=== PATIENT | male | born 1945 ===

== ENCOUNTER 2019-05-14 13:49 | Emergency (ER) | payer OTHER ==
--- NOTE | 2019-05-14 13:51 | UC ---
Head Injury HPI - HPI Summary HPI Summary: 73 yo male presents, accompanied by [place], s/p fall. Pt has parkinson's and responds "yes" or "no" to most questions. The majority of the history if provided by his . She tells me that pt was sleeping on a chair on their [place]. About 1.5 hours ago she woke him up to get ready to go out and she went inside for a moment. Pt went to get to his feet and stumbled - believes over his large rain/mud boots - and fell on his right side hitting his face against the ground. No LOC. helped him to his feet and cleaned him up and called a neighbor who recommended they be checked out. Pt currently endorses nasal pain, right cheek pain with laceration, and right knee pain with abrasion. Denies headache, dizziness, numbness, tingling, neck/ back/hip pain. He uses a cane or walker at baseline. - History Of Current Complaint Stated Complaint: FACIAL LACERATION Time Seen by Provider: 05/14/19 13:51 Hx Obtained From: Patient, Family/Rehab Aid Hx From Patient Unobtainable Due To: Dementia Onset/Duration: Sudden Onset Severity Currently: Mild Severity Initially: Mild Pain Intensity: 3 Pain Scale Used: 0-10 Numeric - Allergies/Home Medications Allergies/Adverse Reactions: Allergies Allergy/AdvReac Type Severity Reaction Status Date / Time No Known Allergies Allergy Verified 05/14/19 14:00 Home Medications: Home Medications Amantadine CAP* [Symmetrel CAP*] 1 cap PO BID 05/14/19 [History Confirmed ] Aspirin 81 mg CHEW TAB* 1 tab PO DAILY 05/14/19 [History Confirmed 05/14/19] Atorvastatin* [Lipitor 10 MG*] 1 tab PO DAILY 05/14/19 [History Confirmed ] Carbidopa/Levodopa/Entacapone [Carbidopa-Levodopa 50 mg-Enta] 1 tab PO BID 05/13 [History Confirmed 05/14/19] Cephalexin CAP* [Keflex CAP*] 500 mg PO TID #21 cap 05/14/19 [Rx] Entacapone (NF) [Comtan(NF)] 1 tab PO Q4HR 05/14/19 [History Confirmed 05/14/19] Finasteride TAB* [Proscar TAB*] 1 tab PO DAILY 05/14/19 [History Confirmed 05/13] Oxybutynin TAB* [Ditropan TAB*] 1 tab PO BEDTIME 05/14/19 [History Confirmed ] Pimavanserin Tartrate [Nuplazid] 1 cap PO BEDTIME 05/14/19 [History Confirmed ] Selegiline TAB* [Eldepryl TAB*] 1 tab PO BID 05/14/19 [History Confirmed ] Tamsulosin CAP* [Flomax CAP*] 1 cap PO DAILY WITH MEAL 05/14/19 [History Confirmed 05/14/19] traMADol TAB* [Ultram*] 1 tab PO Q6HR PRN 05/14/19 [History Confirmed 05/14/19] PMH/Surg Hx/FS Hx/Imm Hx - Additional Past Medical History Additional PMH: Parkinson's - Family History Known Family History: Positive: Unknown - Social History Occupation: Retired Lives: With Family Alcohol Use: None Substance Use Type: None Smoking Status (MU): Former Smoker Review of Systems All Other Systems Reviewed And Are Negative: No Constitutional: Positive: Negative Skin: Positive: Other - Right facial laceration. Eyes: Positive: Negative ENT: Positive: Negative Respiratory: Positive: Negative Cardiovascular: Positive: Negative Gastrointestinal: Positive: Negative Genitourinary: Positive: Negative Motor: Positive: Negative Neurovascular: Positive: Negative Musculoskeletal: Positive: Other: - Right knee pain. Facial pain. Neurological/Mental Status: Positive: Negative Psychological: Positive: Negative Physical Exam - Summary Physical Exam Summary: GENERAL: NAD. WDWN. No pain distress. SKIN: RIGHT KNEE: Superficial abrasion to anterior knee. RIGHT CHEEK: 3.5cm laceration with partial thickness mild active bleeding. HEENT: Head: See skin. No condon's sign or racoon eyes. Eyes: PERRLA. EOM intact. TTP about right lateral orbit and maxillary bone and zygomatic bone. Ears: Hearing grossly normal. TMs intact, no bulging, erythema, or edema. No hemotympanum Nose: Nasal mucosa with dried blood. Mild ttp nasal bridge. NECK: Supple. Nontender. FROM CHEST: CTAB. No r/r/w. No accessory muscle use. Breathing comfortably and in no distress. CV: RRR. Pulses intact. Brisk cap refill. MSK: FROM in B/L UEs and LEs with symmetric strength. NEURO: A&Ox3. CN: II: Peripheral earl intact. Vision normal. III, IV, : EOMI. No nystagmus or double vision. PERRLA. V: Sensations intact and symmetric. Opens mouth and clenches teeth. VII: No facial asymmetry. Forehead wrinkles. Grins, shuts eyes, frowns, puffs cheeks. VIII: Hearing intact to finger rub. IX, X: Swallows and coughs. Uvula midline. XI: Shrugs shoulders. Turns head against resistance. XII: No tongue deviation. [id number] are intact. Normal speech. No facial drooping. Tremor at baseline. PSYCH: Age appropriate behavior. Triage Information Reviewed: Yes Vital Signs: Vital Signs: Temp Pulse Resp BP Pulse Ox 97.1 F 57 18 172/92 100 05/14/19 14:01 05/14/19 14:01 05/14/19 14:01 05/14/19 14:01 05/14/19 14:01 Vital Signs Reviewed: Yes Procedures - Laceration/Wound Repair 1 Location: head Description: Linear Anesthesia: 2.0% Length, Depth and Shape: 3.5cm Irrigated w/ Saline (ccs): 200 Laceration/Wound Explored: clean Closure: Single Layer Suture Type: Prolene - 5-0 Number of Sutures: 4 Layer Closure?: No Sterile Dressing Applied?: Yes Diagnostics - Radiology CT brain Radiology Interpretation Completed By: Radiologist Summary of Radiographic Findings: IMPRESSION: COMMINUTED FRACTURE OF THE RIGHT MAXILLA. NO ACUTE INTRACRANIAL PATHOLOGY. CT maxio Radiology Interpretation Completed By: Radiologist Summary of Radiographic Findings: FINDINGS: BONES: There is a comminuted fracture of the right zygomaticomaxillary facial complex. The maxillary fracture extends to the sinus, involving the anterior posterior maxillary sinus richards. There is a fracture of the right zygomatic arch. There are fractures of the right lateral and inferior orbital rims. The right maxillary fracture extends to the alveolar ridge. There is diastasis of the frontozygomatic suture. ORBITS: The globes are round. The optic nerves are symmetric. The extraocular musculature is normal. There is no post septal or intraconal inflammatory change. There is no retrobulbar hematoma. PARANASAL SINUSES: There is high attenuation material noted within the right maxillary sinus consistent with blood. BRAIN AND SOFT TISSUE: There is associated soft tissue swelling. There is subcutaneous emphysema. OTHER: None. IMPRESSION: RIGHT ZYGOMATICOMAXILLARY COMPLEX FRACTURE DESCRIBED ABOVE. Right knee XR Radiology Interpretation Completed By: Radiologist Summary of Radiographic Findings: IMPRESSION: #. Negative for fracture. #. 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 Head Injury Course/Dx - Course Course Of Treatment: RIGHT CHEEK LACERATION REPAIR: The procedure was explained to the pt and all questions were answered. A time out was performed, witnessed, and signed. The area was irrigated with 200mL sterile saline. 2mL of 2% lidocaine without epi was administered and good anesthetization was achieved. The wound was explored. In the usual sterile fashion, FOUR 5-0 prolene interrupted sutures were placed. Homeostasis achieved. The wound was bandaged with telfa. Pt tolerated procedure well. tdap updated today. XR knee negative. CT findings as above. I called ENT to discuss findings and they advised to call facial trauma. We do not have facial trauma manager convention, therefore I called [facility] and spoke with Dr. العلي of [facility]. Given that there are no vision changes and EOM are intact - Dr. العلي recommends suturing the laceration, cold compress, and f/u prn. I discussed the above with pt and his with him. I recommended follow up with PCP as soon as possible. states they will call for an appointment tomorrow as they go to a PCP in the [facility]. I had a long discussion with pt's that if Harshad exhibits any mental status change from his baseline or if he has vision changes, headache, or changes in his right eye movement to call 911 or go to the nearest ER immediately. She voiced understanding. Will place him on keflex for his facial laceration and facial fractures. - Differential Dx/Diagnosis Provider Diagnosis: Fall, Orbital fracture, Facial laceration, Zygomatic fracture, Maxillary sinus fracture, Parkinson disease Discharge ED - Sign-Out/Discharge Documenting (check all that apply): Patient Departure All imaging exams completed and their final reports reviewed: Yes - Discharge Plan Condition: Stable Disposition: HOME Prescriptions: Cephalexin CAP* [Keflex CAP*] 500 mg PO TID #21 cap Patient Education Materials: Care For Your Stitches (ED), Laceration (ED), Facial Fracture (ED) Referrals: No Primary Care Phys,NOPCP [Primary Care Provider] - Additional Instructions: 1) Please keep the area bandage, clean, dry, and intact for the next 24- 48hours. Then change the bandage daily until sutures are removed. 2) If you develop a fever, colored or thick discharge, increased pain or swelling - please call your PCP or return for a wound check. 3) Please return in 5-6 days to have your FOUR sutures removed. Take the antibiotic as prescribed. There are several fractures around Harshad's right eye and right sinuses. Please rest and apply ice to the area to reduce pain and swelling. I strongly recommend a recheck with his primary doctor tomorrow. IF YOU NOTICE A CHANGE IN HARSHAD'S EYE MOVEMENT OR CHANGE IN HIS MENTAL STATUS ( CONFUSION/DIFFICULT TO WAKE UP/HEADACHE) PLEASE GO TO THE NEAREST ER IMMEDIATELY OR CALL 911 - Billing Disposition and Condition Condition: STABLE Disposition: Home
[2019-05-14] MEDS ORDERED: Tetan/Diph/Pertus SYR(Tdap)* 0.5 ML SYR(BOOSTRIX) use SYR contains LATEX IM ONE (14:00)
[2019-05-14] MEDS ORDERED: Lidocaine 2% PF * 5 ML VIAL INJ ONE (14:07)
[2019-05-14] MEDS ORDERED: Acetaminophen TAB* 325 MG PO ONE (16:02)
== END 2019-05-14 15:45 | disposition home or self-care (01) ==
LOC: UCEAST 13:49
DX: S02.40EA Zygomatic fracture, right side, initial encounter for closed fracture (principal); S02.40CA Maxillary fracture, right side, initial encounter for closed fracture; S01.411A Laceration without foreign body of right cheek and temporomandibular area, initial encounter; S80.211A Abrasion, right knee, initial encounter; W18.30XA Fall on same level, unspecified, initial encounter; Y93.89 Activity, other specified; Y92.008 Other place in unspecified non-institutional (private) residence as the place of occurrence of the external cause; Z23 Encounter for immunization; M17.11 Unilateral primary osteoarthritis, right knee; G20 Parkinson's disease
CPT/HCPCS: 12013; 70450; 70486; 90715; 99202; A9270-GY; G0463